=== PATIENT | female | born 1985 ===

== ENCOUNTER 2018-07-18 16:57 | Emergency (ER) | payer OTHER ==
[2018-07-18 17:04] VITALS: BP 123/88; PULSE 90; RESP 16; TEMP 98.4; O2SAT 100
--- NOTE | 2018-07-18 17:42 | RAD ---
PROCEDURE: Right Hand Radiographs. HISTORY: pain, punches wall COMPARISON: None. FINDINGS: BONES: No acute fracture. JOINTS: Unremarkable. SOFT TISSUES: Normal. OTHER FINDINGS: None. IMPRESSION: No demonstrated fracture or dislocation.
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
--- NOTE | 2018-07-19 08:47 | CT ---
Date of service: 07/18/2018 PROCEDURE: CT HEAD WITHOUT CONTRAST. HISTORY: head injury, pain COMPARISON: None available. TECHNIQUE: Axial computed tomography images were obtained through the head/brain without intravenous contrast. Radiation dose: Total exam DLP = 749.24 mGy-cm. This CT exam was performed using one or more of the following dose reduction techniques: Automated exposure control, adjustment of the mA and/or kV according to patient size, and/or use of iterative reconstruction technique. FINDINGS: HEMORRHAGE: No intracranial hemorrhage. BRAIN: No mass effect or edema. No atrophy or chronic microvascular ischemic changes. VENTRICLES: Unremarkable. No hydrocephalus. CALVARIUM: Unremarkable. PARANASAL SINUSES: Unremarkable as visualized. No significant inflammatory changes. MASTOID AIR CELLS: Unremarkable as visualized. No inflammatory changes. OTHER FINDINGS: Left parietal scalp swelling. IMPRESSION: Left parietal scalp swelling. No calvarial fracture. No acute intracranial hemorrhage or pathology.
== END 2018-07-18 19:40 | disposition home or self-care (01) ==
LOC: H.ER 16:57
DX: F43.20 Adjustment disorder, unspecified (principal); S09.90XA Unspecified injury of head, initial encounter; T14.90XA Injury, unspecified, initial encounter; W22.09XA Striking against other stationary object, initial encounter; Y04.2XXA Assault by strike against or bumped into by another person, initial encounter; Z00.8 Encounter for other general examination